=== PATIENT | female | born 1960 | race Caucasian/White ===

== ENCOUNTER → 2016-08-15 | Outpatient (CLI) | payer OTHER ==
[2014-04-25 03:35] VITALS: BP 170/78
--- NOTE | 2016-08-15 16:52 | KCIC ---
PROCEDURE Sacrum and coccyx radiographs HISTORY Tailbone pain for 1 month COMPARISON None FINDINGS Four views of the sacrum coccyx are submitted. Sacroiliac joints are preserved. Sacral arcuate lines are maintained. There is degenerative disc disease and spondylosis of the visualized inferior lumbar spine. No acute fracture or dislocation is identified by radiographs. There are phleboliths in the pelvis. IMPRESSION No acute osseous abnormality is identified by radiographs. There is degenerative disc disease and spondylosis of visualized inferior lumbar spine. Electronically signed by: Gallito Morris MD (Aug 15, 2016 16:51:34)
== END | disposition home or self-care (01) ==
LOC: KCIC 16:12
PROVIDERS: ATTEND Family Medicine
DX: M51.36 Other intervertebral disc degeneration, lumbar region (principal); M47.896 Other spondylosis, lumbar region; I87.8 Other specified disorders of veins
CPT/HCPCS: 72220

== ENCOUNTER → 2016-10-08 | Outpatient (CLI) | payer OTHER ==
[2014-04-25 03:35] VITALS: BP 170/78
[~2016-10-08] MED LIST: ATOR40TA59 PO; CYCL10TA2 PO; GADOBUTROL 7.5 MMOL/7.5 ML VIAL IV ONE; INSU100V8 SQ; LIRA0.6P SQ; LISI-334 PO; OMEP40CA5 PO; RIZA10TA PO; TRAM50TA PO
--- NOTE | 2016-10-08 09:51 | KCIC ---
PROCEDURE MRI brain without and with contrast HISTORY Pseudotumor, migraine headaches for years, tinnitus TECHNIQUE Multiplanar, multi sequential pre and post contrast MR imaging was performed of the brain. COMPARISON May 04, 2014 FINDINGS Ventricles are stable in size, within normal limits. There is again mild prominence of the supratentorial subarachnoid spaces near vertex. There is no new intra-axial mass effect, midline shift, extra-axial fluid collection. There is no nodular parenchymal or leptomeningeal enhancement. Very minimal T2 and FLAIR hyperintense signal near the frontal horns greater on the left is stable. A couple of tiny faint focus of T2 and FLAIR hyperintense signal of the left frontal white matter are unchanged. There is no new significant signal abnormality including hemosiderin deposition of the brain parenchyma. There is preservation of the major arterial intracranial intracranial flow voids at the skull base. There is mild thickening of the mastoid air cells bilaterally as seen previously. There is mucous retention cyst of the inferior left maxillary sinus 1.2 centimeters. There is nonspecific mild increased CSF signal of the optic nerve sheaths greater on the left. Cerebellar tonsils are normal in location. Pituitary gland is small. IMPRESSION 1. Mild increased CSF signal of the optic nerve sheaths and small pituitary gland are nonspecific findings, could be incidental although can be associated with intracranial hypertension. There is no new intracranial abnormality. Very minimal nonspecific T2 and FLAIR hyperintense signal abnormality of the left frontal lobe is unchanged. White matter changes can be seen in patients with migraine headaches if corresponding history. Electronically signed by: Gallito Morris MD (Oct 08, 2016 09:49:24)
== END | disposition home or self-care (01) ==
LOC: KCIC MRI 08:48
PROVIDERS: ATTEND Psychiatry & Neurology Neurology
DX: G93.2 Benign intracranial hypertension (principal)
CPT/HCPCS: 70553; 82565; A9585

== ENCOUNTER → 2016-10-11 | Outpatient (CLI) | payer OTHER ==
[2014-04-25 03:35] VITALS: BP 170/78
[~2016-10-11] MED LIST changes: +GADOBUTROL 10 MMOL/10 ML VIAL IV ONE; -GADOBUTROL 7.5 MMOL/7.5 ML VIAL IV ONE
--- NOTE | 2016-10-11 14:08 | KCIC ---
PROCEDURE MRI lumbar spine without and with contrast. HISTORY Low back pain, previous surgery, right radiculopathy for 1 month TECHNIQUE Multiplanar, multi sequential pre and post contrast MR imaging was performed of the lumbar spine. Contrast: 10 cc Gadavist COMPARISON October 12, 2007 FINDINGS The most inferior fully formed intervertebral disc space is again considered L5-S1 for this report. Lumbar vertebral body stature is maintained. There is now negligible anterior spondylolisthesis at L3-4. There is anterior annular tear L3-4. There is greater degree of severe narrowing of the L4-5 intervertebral disc space. Conus terminates at L1. There is no nodular enhancement of the conus or cauda equina. There is no significant enhancement in the intervertebral disc spaces. There is nonspecific edema of the posterior subcutaneous fat of the lower back. There is no significant focal marrow edema. Amorphous edema about the facet articulations greater on the left at L2-3 is probably reactive/degenerative in etiology. L1-2: There is mild buckling of the ligamentum flavum and facet degenerative change. There is minimal disc osteophyte complex, superimposed shallow protrusion in the inferior left neural foramen greater than previously. There is mild narrowing of the inferior left neural foramen, shallow left extraforaminal protrusion contacting undersurface of the proximal extraforaminal left L1 nerve root without significant displacement. Right neural foramen is adequate. L2-3: There is moderate to severe facet degenerative change and moderate buckling of the ligamentum flavum. There is increased fluid in the left facet articulation. There is minimal bulge, relatively greater in the inferior left neural foramina. Neural foramina are overall adequate. There is mild to moderate narrowing the far lateral recesses bilaterally, mild narrowing of the central canal. L3-4: There is fairly severe facet hypertrophic change and buckling of the ligamentum flavum relatively greater than previously. There is increased moderate to severe spinal stenosis, some preserved subarachnoid space. There is lateral recess stenosis bilaterally. Neural foramina are overall adequate. L4-5: There again has been posterior decompression. There is some calcification associated with broad protrusion or fibrotic change. There is some contact of the descending right L5 nerve root as seen previously. Neural foramina are adequate. L5-S1: There has been posterior decompression as seen previously. Spinal canal and neural foramina are adequate. IMPRESSION 1. As for previous exam, the most inferior fully formed intervertebral disc space is considered L5-S1. 2. Comparing with 2008 exam, there is increased moderate to severe spinal stenosis at L3-4 with some preserved subarachnoid space, progression of facet degenerative change and buckling of the ligamentum flavum at this level. There is now negligible anterior spondylolisthesis at this level. There is mild to moderate narrowing of the lateral recesses bilaterally at L2-3. 3. Shallow left extraforaminal protrusion at L1-2 contacts the undersurface of the extraforaminal left L1 nerve root without displacement. 4. There has been progression of severe narrowing of the L4-5 intervertebral disc space at which there is degenerative endplate change. 5. Amorphous edema about facet articulations greater on the left at the L2-3 level is probably reactive/degenerative in etiology assuming no clinical suspicion for infection. Electronically signed by: Gallito Morris MD (Oct 11, 2016 14:06:40)
== END | disposition home or self-care (01) ==
LOC: KCIC MRI 12:37
PROVIDERS: ATTEND Nurse Practitioner Family
DX: M48.06 Spinal stenosis, lumbar region (principal); M43.16 Spondylolisthesis, lumbar region; M51.26 Other intervertebral disc displacement, lumbar region
CPT/HCPCS: 72158; A9585

== ENCOUNTER → 2016-11-07 | Outpatient (CLI) | payer OTHER ==
[2014-04-25 03:35] VITALS: BP 170/78
[~2016-11-07] MED LIST changes: -GADOBUTROL 10 MMOL/10 ML VIAL IV ONE
[2016-11-07 11:56] LABS: BASO # 0.1 x10^3/uL (0.0-0.2); BASO % 1 % (0-3); EOS % 2 % (0-3); HEMATOCRIT 40.4 % (36.0-47.0); HEMOGLOBIN 13.6 g/dL (12.0-15.5); LYMPH # 3.3 x10^3/uL (1.0-4.8); LYMPH % 36 % (24-48); MEAN CORPUSCULAR HEMOGLOBIN 29 pg (25-35); MEAN CORPUSCULAR HGB CONC 34 g/dL (31-37); MEAN CORPUSCULAR VOLUME 86 fL (79-100); MONO % 9 % (0-9); NEUT % 53 % (31-73); PLATELET COUNT 164 x10^3/uL (140-400); WHITE BLOOD COUNT 9.1 x10^3/uL (4.0-11.0)
[2016-11-07 13:04] LABS: CREATININE 0.9 mg/dL (0.6-1.0); GFR 64.5
[2016-11-07 13:54] LABS: BARBITURATES NEG (NEG); BENZODIAZEPINES NEG (NEG); CANNABINOIDS POS (NEG); COCAINE NEG (NEG); METHADONE NEG (NEG); OPIATES NEG (NEG); PHENCYCLIDINE NEG (NEG)
[2016-11-07 13:55] LABS: ETHANOL, URINE NEG (NEG)
== END | disposition home or self-care (01) ==
LOC: LAB 11:28
PROVIDERS: ATTEND Psychiatry & Neurology Neurology
DX: G93.2 Benign intracranial hypertension (principal); G43.109 Migraine with aura, not intractable, without status migrainosus
CPT/HCPCS: 36415; 82565; 82947; 84520; 85027; 85651; G0481

== ENCOUNTER → 2016-11-12 | Outpatient (CLI) | payer OTHER ==
[2014-04-25 03:35] VITALS: BP 170/78
[2016-11-12 16:10] LABS: PROTHROMBIN TIME PATIENT 12.6 SEC (11.7-14.0)
== END | disposition home or self-care (01) ==
LOC: LAB 15:22
PROVIDERS: ATTEND Psychiatry & Neurology Neurology
DX: G93.2 Benign intracranial hypertension (principal)
CPT/HCPCS: 36415; 85610

== ENCOUNTER 2016-11-13 12:15 | Inpatient (IN) | payer OTHER ==
[~2016-11-13] VITALS: Ht 162.6 cm; Wt 112.9 kg
[2016-12-26] MEDS ORDERED: PROAIR HFA8.5 GM INH (16:25)
[2016-12-26] MEDS ORDERED: METF750T2 PO (16:25)
[2016-12-26] MEDS ORDERED: DULO30CA2 PO (16:25)
[2016-12-26] MEDS ORDERED: COLE3.753 PO (16:25)
[2016-12-26] MEDS ORDERED: IBUP-1007 PO (16:25)
[2016-12-26] MEDS ORDERED: METO25TA9 PO (16:25)
[2017-01-07] VITALS (9 sets, daily range): BP systolic 124–147; BP diastolic 68–77
[2017-01-07] MEDS ORDERED: BACITRACIN 50,000 UNIT in IV NORMAL SALINE 1000ML BAG 1,000 ML IRR ONE (06:00)
[2017-01-07] MEDS ORDERED: BUPIVACAINE 0.5% 50 ML VIAL. ONE (06:49)
[2017-01-07] MEDS ORDERED: GELATIN SPONGE SIZE 100. ONE (06:49)
[2017-01-07] MEDS ORDERED: LIDOCAINE 1%/EPI 1:100,000 20 ML VIAL. ONE (06:49)
[2017-01-07] MEDS ORDERED: THROMBIN TOPICAL 20,000 UNIT SPRAY.SYRN KIT TP ONE (06:49)
[2017-01-07] MEDS ORDERED: IV RINGERS,LACTATED 1000ML 1,000 ML IV SCH (07:00)
[2017-01-07] MEDS ORDERED: MORPHINE SULFATE 2 MG/ML DISP.SYRIN. IV PRN (07:00)
[2017-01-07] MEDS ORDERED: PROCHLORPERAZINE 10 MG/2 ML VIAL. IV PRN (07:00)
[2017-01-07] MEDS ORDERED: ONDANSETRON PF 4 MG/2 ML VIAL. IV PRN ×2 (07:00→12:30)
[2017-01-07] MEDS ORDERED: HYDROmorphone 2 MG/ML VIAL IV PRN (07:00)
[2017-01-07] MEDS ORDERED: fentaNYL PF VIAL 100 MCG/2 ML VIAL IV PRN ×3 (07:00→12:45)
[2017-01-07] MEDS ORDERED: LIDOCAINE 1% 1 ML SYRINGE. ID PRN (07:00)
[2017-01-07] MEDS ORDERED: DESFLURANE > 120 MINUTES IH ONE (08:05)
[2017-01-07] MEDS ORDERED: MIDAZOLAM HCL/PF 2 MG/2 ML VIAL. ONE (08:05)
[2017-01-07] MEDS ORDERED: DEXAMETHASONE SOD PHOS 20 MG/5 ML VIAL. ONE (08:06)
[2017-01-07] MEDS ORDERED: PROPOFOL 20 ML IV ONE (08:06)
[2017-01-07] MEDS ORDERED: REMIFENTANIL 2 MG VIAL. IV ONE (08:06)
[2017-01-07] MEDS ORDERED: fentaNYL PF VIAL 100 MCG/2 ML VIAL ONE ×2 (08:06→12:19)
[2017-01-07] MEDS ORDERED: MINERAL OIL/PETROLATUM,WHITE OPHTH OINT 3.5GM TUBE. ONE (08:06)
[2017-01-07] MEDS ORDERED: LIDOCAINE 2% PF Vial for OR 5 ML VIAL. ONE (08:06)
[2017-01-07] MEDS ORDERED: ONDANSETRON PF 4 MG/2 ML VIAL. ONE (08:06)
[2017-01-07] MEDS ORDERED: ROCURONIUM 50 MG/5 ML VIAL. ONE (08:06)
[2017-01-07] MEDS ORDERED: 0.9 % SODIUM CHLORIDE 50 ML VIAL. IJ ONE (08:07)
[2017-01-07] MEDS ORDERED: PROPOFOL 100 ML IV ONE (08:11)
[2017-01-07] MEDS ORDERED: PHENYLEPHRINE 10 MG/ML VIAL. ONE (09:10)
[2017-01-07] MEDS ORDERED: REMIFENTANIL 1 MG VIAL. IV ONE (11:00)
[2017-01-07] MEDS ORDERED: PROPOFOL 0 ML IV ONE (11:42)
[2017-01-07] MEDS ORDERED: LABETALOL 20 MG/4 ML DISP.SYRIN. ONE (12:05)
--- NOTE | 2017-01-07 12:29 | PDOC ---
BRIEF OPERATIVE NOTE Date: Jan 07, 2017 Pre-Op Diagnosis lumbar stenosis, lumbar spondylosis, lumbar radiculopathy Post-Op Diagnosis same Procedure Performed bilateral laminectomy L2-3 and L3-4 Surgeon Flakito Bioinformatics Analyst none Anesthesiologist Samaria Anesthesia Type: General Blood Loss 75mL Specimens Obtained decompression/laminectomy Findings severe stenosis at the aforementioned levels Complications none apparent Additional Remarks neuromonitoring remained at least baseline throughout the procedure JENAE CAMARILLO MD Jan 07, 2017 12:29
[2017-01-07] MEDS ORDERED: oxyCODONE IR 5 MG TABLET PO PRN (12:30)
[2017-01-07] MEDS ORDERED: CALCIUM CARBONATE 500 MG TAB.CHEW PO PRN (12:30)
[2017-01-07] MEDS ORDERED: 0.9 % SODIUM CHLORIDE 10 ML DISP.SYRIN. IV PRN (12:30)
[2017-01-07] MEDS ORDERED: MAG HYDROX/ALUMINUM HYD/SIMETH 30 ML ORAL.SUSP PO PRN (12:30)
[2017-01-07] MEDS ORDERED: NALOXONE 0.4 MG/ML VIAL. IV PRN (12:30)
[2017-01-07] MEDS ORDERED: diphenhydrAMINE HCL 25 MG CAPSULE PO PRN (12:30)
[2017-01-07] MEDS ORDERED: MAGNESIUM HYDROXIDE 2,400 MG/30 ML ORAL.SUSP. PO PRN (12:30)
[2017-01-07] MEDS ORDERED: ZOLPIDEM 5 MG TABLET. PO PRN (12:30)
[2017-01-07] MEDS ORDERED: diphenhydrAMINE 50 MG/ML VIAL IV PRN (12:30)
[2017-01-07] MEDS: fentaNYL PF VIAL 100 MCG/2 ML VIAL IV PRN ×4 (13:01→14:43)
[2017-01-07] MEDS ORDERED: INSULIN ASPART 100 UNIT/ML 10ML VIAL. SQ ONE ×2 (13:04→13:15)
[2017-01-07] MEDS ORDERED: COLE625T12 PO (13:53)
[2017-01-07] MEDS ORDERED: IBUPROFEN 600 MG TABLET. PO PRN (14:00)
[2017-01-07] MEDS ORDERED: ALBUTEROL SULFATE 2.5 MG/3 ML NEBU. NEB PRN ×2 (14:00)
--- NOTE | 2017-01-07 15:17 | ACF ---
Admission Forms Criteria BACK PAIN Clinical Indications for Admission to Inpatient Care (Place 'X' for any and all applicable criteria): Admission is indicated for ANY ONE of the following (1)(2)(3)(4)(5)(6): [X]I. Inpatient admission required rather than observation care (Also use Back Pain: Observation Care as appropriate) because of ANY ONE of the following [ ]a) Severe pain requiring acute inpatient management [X]b) Immediate inpatient surgery [ ]c) Other condition, treatment or monitoring requiring inpatient admission [ ]II. Spine fracture with significant damage or threat of damage to vertebral column or spinal cord [ ]III. Progressive or severe neurologic deficit [ ]IV. Suspected spinal infection (e.g., epidural abscess, vertebral osteomyelitis)(10) [ ]V. Suspected cause requires inpatient treatment (eg, aortic dissection) [ ]. Cauda equina syndrome as indicated by ANY ONE of the following (9): [ ]a) Bowel dysfunction [ ]b) Bladder dysfunction [ ]c) Saddle anesthesia [ ]d) Neurologic abnormality suggesting cauda equina impingement Extended stay beyond goal length of stay may be needed for (3)(25): [ ]a) Spinal cord compression from stenosis, disk, or tumor (8)(9) [ ]b) Traumatic or pathologic vertebral fracture (33) [ ]c) Vertebral infection(10) [ ]d) Severe pain that is difficult to control [ ]e) Older patients(65 years or older) The original [employer] content created by [employer] has been revised. The portions of the content which have been revised are identified through the use of italic text or in bold, and [facility] has neither reviewed nor approved the modified material. All other unmodified content is copyright [employer]. Please see references footnoted in the original [facility] edition 2016 Admission Criteria Met?: Yes BAILEY AMATO Jan 07, 2017 15:17
[2017-01-07] MEDS: METHOCARBAMOL 750 MG TABLET PO SCH (15:33)
[2017-01-07] MEDS ORDERED: INSU100I17 SQ (17:05)
[2017-01-07] MEDS: COLESEVELAM HCL 625 MG TABLET PO SCH (17:10)
[2017-01-07] MEDS: CALCIUM CARB/VIT D3 500/200 TABLET. PO SCH (17:10)
[2017-01-07] MEDS: FERROUS SULFATE 325 MG TABLET. PO SCH (17:10)
[2017-01-07] MEDS ORDERED: DEXTROSE 50% 25 GM / 50ML DISP.SYRIN. IV PRN (17:15)
[2017-01-07] MEDS: INSULIN ASPART 300 UNITS/3 ML INSULN.PEN SQ SCH ×2 (18:06→18:21)
[2017-01-07] MEDS ORDERED: metFORMIN XR 500 MG TAB.ER.24H PO SCH (21:00)
[2017-01-07] MEDS ORDERED: INSULIN DETEMIR 300 UNITS/3 ML INSULN.PEN. SQ SCH (21:00)
[2017-01-07] MEDS ORDERED: LIRAGLUTIDE 1.8 MG SQ SCH (21:00)
[2017-01-07] MEDS ORDERED: ATORVASTATIN CALCIUM 40 MG TABLET. PO SCH (21:00)
[2017-01-07] MEDS ORDERED: METOPROLOL SUCC 24HR ER 50 MG TAB.ER.24H. PO SCH (21:00)
[2017-01-07] MEDS: oxyCODONE IR 5 MG TABLET PO PRN (21:19)
[2017-01-07] MEDS: DOCUSATE SODIUM 100 MG CAPSULE. PO SCH (21:20)
[2017-01-07] MEDS: SENNOSIDES/DOCUSATE 8.6/50MG TABLET. PO SCH (21:20)
[2017-01-07] MEDS: DULoxetine HCL 30 MG CAPSULE.DR PO SCH (21:20)
[2017-01-08 02:54] VITALS: BP 118/64
[2017-01-08 06:18] VITALS: BP 118/62
[2017-01-08] MEDS: oxyCODONE IR 5 MG TABLET PO PRN ×2 (06:42→10:47)
[2017-01-08] MEDS ORDERED: PANTOPRAZOLE 40 MG TABLET.DR. PO SCH (07:30)
[2017-01-08] MEDS: FERROUS SULFATE 325 MG TABLET. PO SCH (07:55)
[2017-01-08] MEDS: CALCIUM CARB/VIT D3 500/200 TABLET. PO SCH (07:55)
[2017-01-08] MEDS: SENNOSIDES/DOCUSATE 8.6/50MG TABLET. PO SCH (07:56)
[2017-01-08] MEDS: COLESEVELAM HCL 625 MG TABLET PO SCH (07:56)
[2017-01-08] MEDS: DULoxetine HCL 30 MG CAPSULE.DR PO SCH (07:56)
[2017-01-08] MEDS: DOCUSATE SODIUM 100 MG CAPSULE. PO SCH (07:56)
[2017-01-08] MEDS: METHOCARBAMOL 750 MG TABLET PO SCH (07:59)
[2017-01-08] MEDS: INSULIN ASPART 300 UNITS/3 ML INSULN.PEN SQ SCH ×4 (08:03→12:00)
[2017-01-08] MEDS ORDERED: MULTIVITAMIN with MINERAL TABLET. PO SCH (09:00)
[2017-01-08] MEDS ORDERED: LISINOPRIL 20 MG TABLET PO SCH (09:00)
--- NOTE | 2017-01-08 10:29 | PDOC ---
SUBJECTIVE Subjective Denies acute complaints this AM. Some incisional pain. Reports intermittent tingling right leg but improved. Has been up to bathroom without problem. OBJECTIVE Vital Signs Vital Signs Date Time Temp Pulse Resp B/P (MAP) Pulse Ox O2 Delivery O2 Flow Rate FiO2 01/08/17 08:31 96 Room Air 01/08/17 06:42 20 96 Room Air 01/08/17 06:18 98.1 80 18 118/62 (80) 96 Room Air 98.1 01/08/17 02:54 97.4 88 18 118/64 (82) 94 Room Air 97.4 01/07/17 22:56 98.9 87 18 132/71 (91) 94 Room Air 98.9 01/07/17 22:20 18 93 Room Air 2.0 01/07/17 21:22 91 124/65 01/07/17 21:19 22 93 Room Air 01/07/17 20:30 Room Air 01/07/17 18:08 97.9 90 16 124/70 (88) 93 Room Air 97.9 01/07/17 18:00 16 01/07/17 17:00 85 16 139/73 (95) 94 Room Air 01/07/17 16:00 84 20 126/70 (88) 94 Room Air 01/07/17 15:30 94 16 132/71 (91) 94 Room Air 01/07/17 15:15 16 Room Air 01/07/17 15:00 85 16 135/68 (90) 95 Room Air 01/07/17 14:55 Room Air 01/07/17 14:45 83 16 147/77 (100) 95 Room Air 01/07/17 14:43 16 96 Room Air 01/07/17 14:30 87 16 131/75 (93) 95 Room Air 01/07/17 14:20 98.0 84 16 133/76 (95) 96 Nasal Cannula 2.0 98.0 01/07/17 13:43 13 95 Room Air 2.0 01/07/17 13:31 97.1 87 15 137/68 95 Nasal Cannula 2 97.1 01/07/17 13:16 97.1 86 15 121/67 95 Nasal Cannula 2 97.1 01/07/17 13:12 94 Room Air 01/07/17 13:01 97.1 86 15 129/64 99 Simple Mask 10.0 97.1 01/07/17 13:01 15 98 Simple Mask 10.0 01/07/17 12:46 97.1 88 12 126/64 98 Simple Mask 10 97.1 01/07/17 12:31 97.1 87 12 138/62 98 Simple Mask 10 97.1 01/07/17 12:31 Room Air I & O Intake and Output 01/08/17 07:00 Intake Total 3390 ml Output Total 2970 ml Balance 420 ml Intake Oral 300 ml IV Total 3090 ml Output Urine Total 2550 ml Drainage Total 420 ml PHYSICAL EXAM Physical Exam AAOx4, NAD, SOLORZANO 5/5, sensation grossly intact LT, dressing c/d/i, flat, mild ss stain inferior dressing ASSESSMENT/PLAN Assessment/Plan POD 1 lumbar laminectomy -increase activities/PT with standard post-op restrictions -anticipate d/c today if continues to recover well Problems: COMMENT Lab Laboratory Tests Test 01/07/17 12:37 01/07/17 16:52 01/07/17 20:40 01/08/17 06:33 Glucose (Fingerstick) 231 mg/dL (70-99) 267 mg/dL (70-99) 288 mg/dL (70-99) 232 mg/dL (70-99) JENAE CAMARILLO MD Jan 08, 2017 10:29
[2017-01-08] MEDS ORDERED: RIZATRIPTAN 5 MG PO PRN (10:30)
[2017-01-08 11:00] VITALS: BP 122/70
[2017-01-08] MEDS ORDERED: OXYC5CAP PO (11:21)
[2017-01-08] MEDS ORDERED: SENN-37 PO (11:22)
[2017-01-08] MEDS ORDERED: METH-38 PO (11:24)
--- NOTE | 2017-01-08 15:22 | PATHOLOGY ---
PATHOLOGY REPORT * * * * * * * * FINAL DIAGNOSIS: Segments of fibrocartilaginous, fibroadipose, and skeletal muscle tissue and bone, lumbar decompression: - Degenerative changes of fibrocartilaginous tissue. COMMENT: There is no evidence of an acute inflammatory process or malignancy. (JPM:mml; d/t: 01/08/2017) REPORT ELECTRONICALLY SIGNED BY: Arsh Buenrostro M.D. DATE/TIME: 01/08/2017 15:21 * * * * * * * * GROSS PATHOLOGY: Received in formalin labeled "Lavern Negrete, Lumbar decompression" are multiple segments of morris, rubbery, and gritty tissue admixed with bone. The specimen measures 3.9 x 3.5 x 1.7 cm in aggregate dimensions. The tissue is submitted representatively in cassette A1, following decalcification. (JPM; 01/07/17) INITIAL CPT CODE(S): A; 59994, 16719 Professional services performed [place] [facility] [address] Technical services performed by [facility] at [address] [place] [address]. SPECIMEN(S) RECEIVED: A.Lumbar decompression CLINICAL HISTORY: Stenosis, spondylosis, radiculopathy, low back pain PATIENT: LAVERN NEGRETE /AGE: 1106/03/1960 (Age: 56) PATIENT #: [id number] ALT CASE #: SPECIMEN COLLECTION DATE: 01/07/2017 SPECIMEN RECEIVED DATE: 01/07/2017 [facility] - [address] [place] [address] - PHONE: [phone] * * * END OF REPORT * * *
--- NOTE | 2017-01-08 15:43 | OP ---
DATE OF SURGERY: 01/07/2017 PREOPERATIVE DIAGNOSES: 1. Lumbar stenosis. 2. Lumbar radiculopathy with lumbar spondylosis. POSTOPERATIVE DIAGNOSES: 1. Lumbar stenosis. 2. Lumbar radiculopathy with lumbar spondylosis. SURGEON: Brendan Camarillo MD SALES AND MARKETING ENGINEER: None. PROCEDURE: Bilateral laminectomy of lumbar 2-3 and lumbar 3-4 with intraoperative use of neuromonitoring and intraoperative use of microscope. ANESTHESIA: General. COMPLICATIONS: None apparent intraprocedurally. INDICATIONS FOR THE PROCEDURE: The patient is a 56-year-old female who presents with primarily right lower extremity pain localized to severe stenosis at lumbar 3-4 and significant stenosis at lumbar 2-3. She has been refractory to nonsurgical treatments. Please refer to the patients' chart for additional details. DESCRIPTION OF PROCEDURE: After informed consent was obtained, the patient was brought into the operating room where she was placed under general anesthesia. neuromonitoring was instituted, and baseline potentials were obtained. The patient was placed in the prone position on the West table. All pressure points were checked and padded appropriately. The lumbar region was prepped and draped in the usual sterile fashion. The patient had a previous lumbar incision from a prior lumbar decompression that was more caudal to the present levels. The appropriate location of the incision was verified with fluoroscopy, and a portion of this old incision with some extension cephalad was reopened with a 10-blade scalpel. Monopolar electrocautery was utilized to dissect the vascular midline to approach the spinous processes of lumbar 2, 3, and 4. Dissection was carried bilaterally across the lamina at these locations as well. Level was verified with fluoroscopy prior to the initiation of decompression. Bilateral laminectomy was then performed at lumbar 2-3, lumbar 3-4, centered across the regions with most severe stenosis. This was performed with a Leksell as well as a pneumatic drill and a Kerrison rongeur. The underlying ligament at these locations was noted to be markedly hypertrophied. This was gently dissected away from the thecal sac with a Mimi and removed with a Kerrison rongeur. The lateral recesses were decompressed with Kerrison rongeur at all locations. Upon completion of this, the neural elements were noted to be very well decompressed. This was verified with direct visualization as well as gentle palpation with Mimi. Of note, a small, intact arachnoid bubble was noted on thecal sac. The patient did have a fairly recent lumbar puncture, and it was uncertain whether this was related to that or whether directly related to removal of ligament. No cerebrospinal fluid was observed at any time even with Valsalva. However, in light of this finding, it was felt that protection from potential leak would be beneficial. An onlay of Gelfoam was instituted, and DuraSeal was instituted in a layered fashion over this region. Valsalva was again performed, and no cerebrospinal fluid was identified at any point. Attention was then turned to closure. After the wound was generously irrigated with antibiotic irrigation and Pristine hemostasis was achieved with FloSeal, cottonoids, and some use of bipolar electrocautery. The muscles and fascia were then reapproximated with 0 Vicryl in a simple interrupted fashion. Subcutaneous tissues were reapproximated with 2-0 Vicryl in interrupted inverted fashion. Skin was reapproximated with 4-0 Vicryl in a running subcuticular fashion. Dermabond was applied, and the wound was dressed with Telfa and Tegaderm after the Dermabond was completely dry. At the end of procedure, all needle and sponge counts were correct x2. The patient was extubated in the operating room and taken to recovery in stable condition. There were no intraprocedural complications apparent. Neuro monitoring potentials remained at least at baseline throughout the duration of the entire procedure. BRENDAN CAMARILLO MD DR: JESSICA/oanh JOB#: [id number] / [id number] ANA
[2017-01-08] MEDS ORDERED: VICTOZA SQ SCH (21:00)
== END 2017-01-08 12:50 | disposition home or self-care (01) | DRG 516 ==
LOC: OBSVTOIN 01-07 06:54 → OPSVCIP 01-07 06:54 → INTOOBSV 01-07 06:54 → EDSTATUS 01-07 08:30 → 4 SOUTHEST 01-07 14:20
PROVIDERS: ADMIT Neurological Surgery; ATTEND Neurological Surgery
PROC: 4A11X4Z Monitoring of Peripheral Nervous Electrical Activity, External Approach (ICD-10-PCS; 2017-01-07)
PROC: 01NB0ZZ Release Lumbar Nerve, Open Approach (ICD-10-PCS; principal; 2017-01-07 08:30)
DX: M47.26 Other spondylosis with radiculopathy, lumbar region (principal); Z68.41 Body mass index [BMI] 40.0-44.9, adult; M48.06 Spinal stenosis, lumbar region; E66.01 Morbid (severe) obesity due to excess calories
CPT/HCPCS: 76000; 82962; 88304; 88311; 94250; 94760; J0690; J1100; J1815; J2250; J2405; J2704; J3010; J3490; J7030; J7120; 97530

== ENCOUNTER → 2016-11-19 | Outpatient (CLI) | payer OTHER ==
[~2016-11-19] VITALS: Ht 162.6 cm; Wt 112.5 kg
[2016-11-19 09:45] VITALS: BP 108/69
[2016-11-19 09:55] LABS: INR 1.1 (0.8-1.1); PROTHROMBIN TIME PATIENT 13.9 SEC (11.7-14.0)
--- NOTE | 2016-11-19 10:48 | RAD ---
Fluoroscopically guided lumbar puncture, 11/19/2016: History: Pseudotumor cerebri, headaches Under local anesthesia, aseptic conditions and fluoroscopic guidance a lumbar puncture was performed at the L2-3 level utilizing a 20-gauge spinal needle. Good clear CSF flow was obtained. The opening pressure was 23 cm of water. A total of 6 cc of CSF was removed and sent to the lab for appropriate studies. The closing pressure was 20 cm of water. The needle was then removed and hemostasis obtained. The patient tolerated the procedure well. She will be monitored by the radiology nursing staff for approximately 3 hours and then discharged if no problems develop. 1.2 minutes of fluoroscopy time was utilized. 2 fluoroscopic spot images were recorded.
[2016-11-19 11:14] LABS: CSF CLARITY CLEAR; CSF COLOR COLORLESS
[2016-11-19 11:29] LABS: CSF PROTEIN 62.7 mg/dL (15.0-45.0)
[2016-11-19 11:30] VITALS: BP 111/72
[2016-11-19 13:15] VITALS: BP 119/73
== END | disposition home or self-care (01) ==
LOC: RAD 08:45
PROVIDERS: ATTEND Psychiatry & Neurology Neurology
DX: G93.2 Benign intracranial hypertension (principal); G43.109 Migraine with aura, not intractable, without status migrainosus
CPT/HCPCS: 36415; 62270; 82945; 84157; 85610; 85651; 87102; 87205; 87252; 89051

== ENCOUNTER → 2016-12-30 | Outpatient (CLI) | payer OTHER ==
[2016-11-19 13:15] VITALS: BP 119/73
[~2016-12-30] MED LIST changes: +COLE3.754 PO; +DULO30CA2 PO; +IBUP-1007 PO; +METF750T2 PO; +METO25TA9 PO; +PROAIR HFA8.5 GM INH
[2016-12-30 15:39] LABS: BASO # 0.1 x10^3/uL (0.0-0.2); BASO % 1 % (0-3); EOS % 1 % (0-3); HEMATOCRIT 39.9 % (36.0-47.0); HEMOGLOBIN 13.8 g/dL (12.0-15.5); LYMPH # 2.8 x10^3/uL (1.0-4.8); LYMPH % 29 % (24-48); MEAN CORPUSCULAR HEMOGLOBIN 30 pg (25-35); MEAN CORPUSCULAR HGB CONC 35 g/dL (31-37); MEAN CORPUSCULAR VOLUME 86 fL (79-100); MONO % 8 % (0-9); NEUT % 62 % (31-73); PLATELET COUNT 157 x10^3/uL (140-400); RED BLOOD COUNT 4.64 x10^6/uL (3.50-5.40); WHITE BLOOD COUNT 9.8 x10^3/uL (4.0-11.0)
[2016-12-30 15:54] LABS: INR 1.1 (0.8-1.1); PROTHROMBIN TIME PATIENT 13.2 SEC (11.7-14.0)
== END | disposition home or self-care (01) ==
LOC: SURGPAT 13:30
PROVIDERS: ATTEND Neurological Surgery
DX: M47.896 Other spondylosis, lumbar region (principal)
CPT/HCPCS: 36415; 85027; 85610; 85730; 87641

== ENCOUNTER → 2017-03-10 | Outpatient (CLI) | payer OTHER ==
[~2017-03-10] MED LIST changes: +COLE3.753 PO; -COLE3.754 PO; +COLE625T12 PO; +INSU100I17 SQ; +METH-38 PO; +OXYC5CAP PO; +SENN-37 PO
--- NOTE | 2017-03-10 12:16 | RAD ---
Cervical spine radiograph 03/10/2017 at 0951 hours Indication: Fibromyalgia Comparison: None available Technique: 2 views of the cervical spine including AP and lateral views are provided. Findings: Cervical spine is visualized from the cranial cervical junction through the inferior endplate of C7. Vertebral body height and alignment are maintained. There is disc space narrowing at C5-C6 and C6-C7. Posterior disc osteophyte complexes are noted at C4-C5, C5-C6 and C6-C7. Anterior marginal osteophytosis is noted. There is no significant prevertebral soft tissue swelling. No acute fracture is identified. Multilevel moderate to advanced facet arthropathy and mild to moderate uncovertebral joint arthropathy is noted. Impression: Moderate degenerative changes of the cervical spine without evidence for acute fracture or malalignment.
--- NOTE | 2017-03-10 12:18 | RAD ---
Right shoulder radiograph 03/10/2017 at 0151 hours Indication: Chronic neck pain, fibromyalgia Comparison: None available Technique: 3 views of the right shoulder are provided. Findings: There is no acute fracture or dislocation. Mild joint space narrowing is present with osteophytosis along the glenoid. No soft tissue abnormality is identified. Visualized portions of the lungs are clear. Impression: No acute fracture or dislocation. Mild osteoarthrosis of the glenohumeral joint.
== END | disposition home or self-care (01) ==
LOC: RAD 09:18
DX: M48.02 Spinal stenosis, cervical region (principal); M79.7 Fibromyalgia; M47.892 Other spondylosis, cervical region; M19.011 Primary osteoarthritis, right shoulder
CPT/HCPCS: 72040; 73030

== ENCOUNTER → 2017-04-14 | Outpatient (CLI) | payer OTHER ==
[~2017-04-14] MED LIST changes: +METO-239 PO; -METO25TA9 PO
== END | disposition home or self-care (01) ==
LOC: LAB 15:16
PROVIDERS: ATTEND Psychiatry & Neurology Neurology
DX: G43.109 Migraine with aura, not intractable, without status migrainosus (principal)
CPT/HCPCS: 85651

== ENCOUNTER → 2017-09-30 | Outpatient (CLI) | payer OTHER | END | disposition home or self-care (01) | LOC: KCIC 12:14 | DX: M47.893 Other spondylosis, cervicothoracic region (principal); M25.78 Osteophyte, vertebrae | CPT/HCPCS: 72040; 72072 ==

== ENCOUNTER → 2017-10-02 | Outpatient (CLI) | payer OTHER ==
[2017-10-02 16:18] LABS: ALBUMIN 3.4 g/dL (3.4-5.0); ALBUMIN/GLOBULIN RATIO 0.9 (1.0-1.7); ALK PHOS 126 U/L (46-116); ALT (SGPT) 33 U/L (14-59); ANION GAP 7 (6-14); AST (SGOT) 25 U/L (15-37); BLOOD UREA NITROGEN 17 mg/dL (7-20); BUN/CREATININE RATIO 17 (6-20); CARBON DIOXIDE 26 mmol/L (21-32); CHLORIDE 107 mmol/L (98-107); CREATINE KINASE 149 U/L (26-192); GFR 56.9; GLUCOSE 131 mg/dL (70-99); POTASSIUM 4.2 mmol/L (3.5-5.1); SODIUM 140 mmol/L (136-145); TOTAL BILIRUBIN 0.2 mg/dL (0.2-1.0); TOTAL PROTEIN 7.2 g/dL (6.4-8.2)
[2017-10-02 17:33] LABS: SEDIMENTATION RATE 45 (0-25)
== END | disposition home or self-care (01) ==
LOC: LAB 15:11
DX: G43.011 Migraine without aura, intractable, with status migrainosus (principal); M89.8X1 Other specified disorders of bone, shoulder
CPT/HCPCS: 36415; 80053; 82550; 85651; 86038; 86141

== ENCOUNTER → 2017-10-13 | Outpatient (CLI) | payer OTHER ==
[2017-10-13] MEDS: GADOBUTROL 10 MMOL/10 ML VIAL IV (15:20)
== END | disposition home or self-care (01) ==
LOC: MRI 14:27
DX: M89.8X1 Other specified disorders of bone, shoulder (principal); M48.02 Spinal stenosis, cervical region; M47.892 Other spondylosis, cervical region
CPT/HCPCS: 72156; A9585

== ENCOUNTER → 2018-01-22 | Day surgery (SDC) | payer OTHER ==
[~2018-01-22] MED LIST changes: +GLYCOPYRROLATE 1 MG/5 ML VIAL. ONE; +IV RINGERS,LACTATED 1000ML 1,000 ML IV SCH; +LIDOCAINE 1% PF 2 ML VIAL. ID PRN; +LIDOCAINE 2% PF Vial for OR 5 ML VIAL. ONE; +MORPHINE SULFATE 2 MG/ML DISP.SYRIN. IV PRN; +ONDANSETRON PF 4 MG/2 ML VIAL. IV PRN; +PROCHLORPERAZINE 10 MG/2 ML VIAL. IV PRN; +PROPOFOL 40 ML IV ONE; +SODIUM PHOSPHATES 19/7GM 133 ML ENEMA. ONE; +fentaNYL PF VIAL 100 MCG/2 ML VIAL IV PRN
[2018-02-19 09:32] VITALS: BP 128/71
--- NOTE | 2018-02-19 11:05 | PREOP HP ---
DATE OF SERVICE: 02/19/2018 DATE OF PROCEDURE: 02/19/2018. REQUESTING PHYSICIAN: Stephy Alcantar APRN. REASON FOR PROCEDURE: Colorectal cancer screening. HISTORY OF PRESENT ILLNESS: This is a 57-year-old female who presents for colon cancer screening. ALLERGIES: 1. DARVOCET. 2. LYRICA. PAST MEDICAL HISTORY: 1. Anemia. 2. Arthritis. 3. Asthma. 4. Blood clots. 5. Depression. 6. Diabetes. 7. Fibromyalgia. 8. GERD. 9. Hypertension. 10. Hypercholesterolemia. FAMILY MEDICAL HISTORY: Negative for colorectal cancer. SOCIAL HISTORY: She admits to alcohol and is a prior tobacco user. MEDICATIONS: 1. Atorvastatin. 2. Cyclobenzaprine. 3. Lisinopril. 4. Gabapentin. 5. Tramadol. 6. Omeprazole. 7. Paxil. 8. Metoprolol. 9. Metformin. 10. NovoLog. 11. Basaglar KwikPen. 12. Victoza. REVIEW OF SYSTEMS: A 13-point review of systems was done. It is positive as per HPI and otherwise negative. PHYSICAL EXAMINATION: GENERAL: This is a well-developed, well-nourished female, in no apparent distress. HEENT: Oropharynx is clear. CARDIOVASCULAR: S1, S2. LUNGS: Clear. ABDOMEN: Active bowel sounds. Soft, nontender and nondistended. EXTREMITIES: No edema. NEUROLOGIC: Awake, alert and oriented x 3. ASSESSMENT AND PLAN: Colorectal cancer screening. The risks and benefits of the procedure including bleeding, perforation, non-diagnosis and sedation were explained and she has agreed to proceed. Thank you for allowing me to participate in the care of this patient. ITA AVILES MD DR: HENRIETTA/aonh JOB#: [id number] / [id number]
== END | disposition home or self-care (01) ==
LOC: ENDOS 08:06
PROVIDERS: ATTEND Internal Medicine Gastroenterology
DX: Z12.11 Encounter for screening for malignant neoplasm of colon (principal); E78.00 Pure hypercholesterolemia, unspecified; Z86.718 Personal history of other venous thrombosis and embolism; J45.909 Unspecified asthma, uncomplicated; K21.9 Gastro-esophageal reflux disease without esophagitis; Z90.710 Acquired absence of both cervix and uterus; Z98.51 Tubal ligation status; Z87.39 Personal history of other diseases of the musculoskeletal system and connective tissue; E11.9 Type 2 diabetes mellitus without complications; F32.9 Major depressive disorder, single episode, unspecified; F41.9 Anxiety disorder, unspecified; Z72.89 Other problems related to lifestyle; F17.210 Nicotine dependence, cigarettes, uncomplicated; D64.9 Anemia, unspecified; Z86.14 Personal history of Methicillin resistant Staphylococcus aureus infection; I10 Essential (primary) hypertension; G43.909 Migraine, unspecified, not intractable, without status migrainosus; Z79.84 Long term (current) use of oral hypoglycemic drugs
CPT/HCPCS: 45378; 82962; J2001; J2704; J3490; G0121

== ENCOUNTER → 2018-02-19 | Day surgery (SDC) | payer OTHER ==
[~2018-02-19] MED LIST changes: -ATOR40TA59 PO; -COLE3.753 PO; -COLE625T12 PO; -CYCL10TA2 PO; -DULO30CA2 PO; -GLYCOPYRROLATE 1 MG/5 ML VIAL. ONE; -IBUP-1007 PO; -INSU100I17 SQ; -INSU100V8 SQ; +IV RINGERS,LACTATED 1000ML 1,000 ML IV; -IV RINGERS,LACTATED 1000ML 1,000 ML IV SCH; -LIDOCAINE 1% PF 2 ML VIAL. ID PRN; -LIDOCAINE 2% PF Vial for OR 5 ML VIAL. ONE; -LIRA0.6P SQ; -LISI-334 PO; -METF750T2 PO; -METH-38 PO; -METO-239 PO; -MORPHINE SULFATE 2 MG/ML DISP.SYRIN. IV PRN; -OMEP40CA5 PO; -ONDANSETRON PF 4 MG/2 ML VIAL. IV PRN; -OXYC5CAP PO; -PROAIR HFA8.5 GM INH; -PROCHLORPERAZINE 10 MG/2 ML VIAL. IV PRN; -PROPOFOL 40 ML IV ONE; -RIZA10TA PO; -SENN-37 PO; -SODIUM PHOSPHATES 19/7GM 133 ML ENEMA. ONE; -TRAM50TA PO; -fentaNYL PF VIAL 100 MCG/2 ML VIAL IV PRN
== END | disposition home or self-care (01) ==
LOC: SURG 09:52
DX: Z12.11 Encounter for screening for malignant neoplasm of colon (principal); K63.5 Polyp of colon; K57.30 Diverticulosis of large intestine without perforation or abscess without bleeding; K64.0 First degree hemorrhoids; Z88.6 Allergy status to analgesic agent; Z88.5 Allergy status to narcotic agent; E78.00 Pure hypercholesterolemia, unspecified; I10 Essential (primary) hypertension; J45.909 Unspecified asthma, uncomplicated; K21.9 Gastro-esophageal reflux disease without esophagitis; Z98.51 Tubal ligation status; Z90.710 Acquired absence of both cervix and uterus; Z98.890 Other specified postprocedural states; M79.7 Fibromyalgia; E11.9 Type 2 diabetes mellitus without complications; F41.9 Anxiety disorder, unspecified; F32.9 Major depressive disorder, single episode, unspecified; Z72.89 Other problems related to lifestyle; Z86.14 Personal history of Methicillin resistant Staphylococcus aureus infection; Z83.3 Family history of diabetes mellitus; Z82.49 Family history of ischemic heart disease and other diseases of the circulatory system; Z87.891 Personal history of nicotine dependence; Z82.3 Family history of stroke; Z79.899 Other long term (current) drug therapy; Z79.84 Long term (current) use of oral hypoglycemic drugs
CPT/HCPCS: 45380; 45385; 88305; J2704

== ENCOUNTER → 2018-03-09 | Outpatient (CLI) | payer OTHER ==
[2018-02-19 10:27] VITALS: BP 123/64
[~2018-03-09] MED LIST changes: +ATOR40TA59 PO; +COLE3.753 PO; +COLE625T12 PO; +CYCL10TA2 PO; +DULO30CA2 PO; +IBUP-1007 PO; +INSU100I17 SQ; +INSU100V8 SQ; -IV RINGERS,LACTATED 1000ML 1,000 ML IV; +LIRA0.6P SQ; +LISI-334 PO; +METF750T2 PO; +METH-38 PO; +METO-239 PO; +OMEP40CA5 PO; +OXYC5CAP PO; +PROAIR HFA8.5 GM INH; +RIZA10TA PO; +SENN-37 PO; +TRAM50TA PO
--- NOTE | 2018-03-10 16:33 | RAD ---
3d digital tomography Bilateral History: Routine screening Technique: Bilateral 3d digital tomographic views were obtained. In addition, CAD - computer aided detection was utilized. Comparison: None are available. Findings: Breast Tissue Density B : The breast tissue is composed of mixed fatty and fibroglandular tissue. Within the superior, slightly medial left breast there is a single well-circumscribed mass approximately 9 cm from the nipple. No suspicious microcalcification or area of architectural distortion. There are no suspicious right masses, microcalcifications or areas of architectural distortion. Impression: No suspicious findings. BI-RADS Category 0: Incomplete: Need additional imaging evaluation or prior imaging comparison. RECOMMENDATION: Further evaluation with ultrasound of the upper, outer left breast is recommended if prior imaging is unable to be obtained. The patient will receive a letter with the results in the mail. A mammogram does not have 100% sensitivity and therefore a negative imaging study should not delay further work up of a suspicious abnormality. Patient information is entered into the [facility] reminder system using [employer] with a target due date for the next screening mammogram. The patient will receive a reminder. "Our facility is accredited by the [employer] Mammography Program." BI-RADS 0 -- incomplete assessment
== END | disposition home or self-care (01) ==
LOC: MAMMO 13:47
PROVIDERS: ATTEND Nurse Practitioner Family
DX: Z12.31 Encounter for screening mammogram for malignant neoplasm of breast (principal); E11.9 Type 2 diabetes mellitus without complications; I10 Essential (primary) hypertension; E78.00 Pure hypercholesterolemia, unspecified; Z87.891 Personal history of nicotine dependence
CPT/HCPCS: 77063; 77067

== ENCOUNTER → 2018-03-13 | Outpatient (CLI) | payer OTHER ==
[2018-02-19 10:27] VITALS: BP 123/64
--- NOTE | 2018-03-13 17:41 | RAD ---
CLINICAL INDICATION: LAVERN FALK, who is 57 years of age, presents for further evaluation of a finding noted on her screening mammographic exam of 03/09/2017 COMPARISON: Prior mammographic imaging dating back to 03/09/2017 TECHNIQUE: Grayscale and color sonographic evaluation was performed in the region of the central-slightly medial left breast. ULTRASOUND FINDINGS: Targeted ultrasound of the left breast 11:30 position, 6 cm from the nipple: A near anechoic mass of circumscribed margins and internal homogeneous low level echoes is present with parallel orientation and is of oval/round shape. There is no internal vascularity on Doppler interrogation. It measures 3 x 3 x 3 mm IMPRESSION: 1. Left breast probably benign mass for which follow up is recommended. RECOMMENDATION: In the absence of new clinical symptoms or change in physical exam, short term follow up diagnostic examination with ultrasound and left mammogram is recommended in 6 months to assess for interval stability. BI-RADS 3: PROBABLY BENIGN
== END | disposition home or self-care (01) ==
LOC: US 14:01
PROVIDERS: ATTEND Nurse Practitioner Family
DX: R92.8 Other abnormal and inconclusive findings on diagnostic imaging of breast (principal); I10 Essential (primary) hypertension; E11.9 Type 2 diabetes mellitus without complications; E78.00 Pure hypercholesterolemia, unspecified; K21.9 Gastro-esophageal reflux disease without esophagitis; Z87.891 Personal history of nicotine dependence; Z90.710 Acquired absence of both cervix and uterus; Z88.5 Allergy status to narcotic agent; Z88.6 Allergy status to analgesic agent
CPT/HCPCS: 76641